=== PATIENT | male | born 1955 | race Caucasian/White ===

== ENCOUNTER 2021-02-16 18:40 | Inpatient (IN) | payer MEDICARE, OTHER ==
[~2021-02-16] VITALS: Ht 170.2 cm; Wt 68.0 kg
[2021-02-16 19:42] LABS: HEMOGLOBIN 12.1 gm/dl (14.0-17.5); RED BLOOD COUNT 4.77 M/UL (4.20-5.50); WHITE BLOOD COUNT 19.6 K/UL (4.5-11.0)
[2021-02-17 04:16] LABS: HEMOGLOBIN 10.6 gm/dl (14.0-17.5)
[2021-02-17 04:21] LABS: RED BLOOD COUNT 4.23 M/UL (4.20-5.50); WHITE BLOOD COUNT 14.1 K/UL (4.5-11.0)
[2021-02-17 13:48] LABS: HEMOGLOBIN 10.5 gm/dl (14.0-17.5)
[2021-02-17] MEDS ORDERED: ALLOPURINOL300 MG PO (17:56)
[2021-02-17] MEDS ORDERED: CARBIDOPA-LEVO1 EAC4 PO (17:57)
[2021-02-17] MEDS ORDERED: FLOMAX 0.4 MG0.4 MG PO (17:58)
[2021-02-17] MEDS ORDERED: KEPPRA250 MG PO (17:58)
[2021-02-17] MEDS ORDERED: AMLODIPINE BESYL5 MG PO (17:59)
[2021-02-17] MEDS ORDERED: PROTONIX40 MG PO (17:59)
[2021-02-17] MEDS ORDERED: BETHANECHOL CHL25 MG PO (18:00)
[2021-02-17] MEDS ORDERED: ZOLOFT50 MG PO (18:01)
[2021-02-17] MEDS ORDERED: GABAPENTIN400 MG PO (18:01)
[2021-02-17] MEDS ORDERED: LORATADINE10 MG PO (18:03)
[2021-02-17] MEDS ORDERED: HYDROCODON-ACE1 EAC2 PO (18:03)
[2021-02-17] MEDS ORDERED: CALCIUM CARBON600 M1 PO (18:08)
[2021-02-17] MEDS ORDERED: FERROUS SULFAT325 MG PO (18:08)
[2021-02-17] MEDS ORDERED: THERA-GEL251 ML TOP (18:08)
[2021-02-17] MEDS ORDERED: TYLENOL EXTRA500 MG PO (18:09)
[2021-02-17] MEDS ORDERED: CLEARLAX119 GM PO (18:10)
[2021-02-17] MEDS ORDERED: REFRESH TEARS15 ML EYERT (18:11)
[2021-02-18 07:01] LABS: HEMOGLOBIN 9.4 gm/dl (14.0-17.5)
[2021-02-18 07:19] LABS: RED BLOOD COUNT 3.8 M/UL (4.20-5.50); WHITE BLOOD COUNT 8.6 K/UL (4.5-11.0)
[2021-02-18 07:25] LABS: BUN/CREATININE RATIO 49 (0-10)
[2021-02-18 18:24] LABS: BUN/CREATININE RATIO 45 (0-10)
[2021-02-19 03:57] LABS: BUN/CREATININE RATIO 39 (0-10)
[2021-02-20 06:26] LABS: HEMOGLOBIN 7.9 gm/dl (14.0-17.5)
[2021-02-20 06:31] LABS: RED BLOOD COUNT 3.17 M/UL (4.20-5.50); WHITE BLOOD COUNT 4.2 K/UL (4.5-11.0)
[2021-02-20 06:56] LABS: BUN/CREATININE RATIO 24 (0-10)
[2021-02-20] MEDS ORDERED: HYDROCODON-ACE1 EAC2 PO (09:12)
[2021-02-20] MEDS ORDERED: CEFUROXIME250 MG PO (09:12)
[2021-02-20] MEDS ORDERED: GABAPENTIN400 MG PO (09:12)
== END 2021-02-20 16:37 | DRG 853 ==
LOC: ER1 18:40 → MED SURG 4 22:31 → CDU 22:31 → 3 EAST 02-17 15:00 → MED SURG 4 02-17 18:03
PROVIDERS: Internal Medicine; Student in an Organized Health Care Education/Training Program; Surgery; ADMIT Internal Medicine
PROC: 0FT44ZZ Resection of Gallbladder, Percutaneous Endoscopic Approach (ICD-10-PCS; principal; 2021-02-16)
DX: A41.9 Sepsis, unspecified organism (principal); J96.01 Acute respiratory failure with hypoxia; K81.0 Acute cholecystitis; N39.0 Urinary tract infection, site not specified; N17.9 Acute kidney failure, unspecified; E87.0 Hyperosmolality and hypernatremia; G91.9 Hydrocephalus, unspecified; R18.8 Other ascites; Z66 Do not resuscitate; Z20.822 Contact with and (suspected) exposure to COVID-19; K74.60 Unspecified cirrhosis of liver; E87.6 Hypokalemia; F41.9 Anxiety disorder, unspecified; N40.0 Benign prostatic hyperplasia without lower urinary tract symptoms; N18.30 Chronic kidney disease, stage 3 unspecified; J43.9 Emphysema, unspecified; D50.9 Iron deficiency anemia, unspecified; D63.1 Anemia in chronic kidney disease; I12.9 Hypertensive chronic kidney disease with stage 1 through stage 4 chronic kidney disease, or unspecified chronic kidney disease; M10.9 Gout, unspecified; E86.0 Dehydration; B96.20 Unspecified Escherichia coli [E. coli] as the cause of diseases classified elsewhere; G40.909 Epilepsy, unspecified, not intractable, without status epilepticus; Z86.73 Personal history of transient ischemic attack (TIA), and cerebral infarction without residual deficits; Z74.01 Bed confinement status; Z98.2 Presence of cerebrospinal fluid drainage device
CPT/HCPCS: 36415; 51702; 71045; 80048; 80053; 81001; 82550; 82553; 82962; 83605; 83735; 84100; 84132; 84484; 85014; 85018; 85025; 85027; 86850; 86900; 86901; 87040; 87077; 87086; 87186; 93005; 94760; 96365; 99285; A6212; C9113; G0378; J0696; J1100; J1650; J1953; J2001; J2270; J2370; J2405; J2704; J2710; J3010; J3480; J7030; J7120; P9047; Q9965; U0002